=== PATIENT | female | born 1935 | race Caucasian/White ===

== ENCOUNTER 2019-03-10 07:01 | Emergency (ER) | payer OTHER ==
[~2019-03-10] VITALS: Ht 162.6 cm; Wt 68.0 kg
[2019-03-10] MEDS ORDERED: CRANBERRY400 MG PO (07:14)
[2019-03-10] MEDS ORDERED: ASA81BEC PO (07:14)
[2019-03-10] MEDS ORDERED: FIBER-LAX625 MG PO (07:15)
[2019-03-10] MEDS ORDERED: PROTONIX40 M2 PO (07:15)
[2019-03-10] MEDS ORDERED: PLAVIX 75 MG TA75 MG PO (07:15)
[2019-03-10] MEDS ORDERED: ROSUVASTATIN CA10 MG PO (07:15)
[2019-03-10] MEDS ORDERED: [UNRECOGNIZED DRUG - OTHER] PO (07:15)
[2019-03-10] MEDS ORDERED: MESTINON60 MG PO (07:16)
[2019-03-10] MEDS ORDERED: MIDODRINE HCL 55 M1 PO (07:16)
[2019-03-10] MEDS ORDERED: MECLIZINE HCL25 M1 PO (07:17)
[2019-03-10] MEDS ORDERED: NITROSTAT0.4 M1 SUBLING (07:18)
[2019-03-10 08:08] LABS: URINE BILIRUBIN NEGATIVE (Negative); URINE BLOOD NEGATIVE (Negative); URINE CLARITY CLEAR; URINE COLOR YELLOW; URINE GLUCOSE-RANDOM NEGATIVE (Negative); URINE KETONES NEGATIVE (Negative); URINE LEUKOCYTES-REFLEX NEGATIVE (Negative); URINE NITRITE-REFLEX POSITIVE (Negative); URINE PROTEIN TRACE (Negative)
[2019-03-10 08:13] LABS: ABSOLUTE LYMPHOCYTES 0.9 thou/uL (0.8-5.3); ABSOLUTE NEUTROPHILS 4.3 thou/uL (1.6-8.1); BASOPHILS 0.2 %; HEMATOCRIT 39.5 % (37.0-47.0); HEMOGLOBIN 13.1 gm/dL (12.0-15.0); LYMPHOCYTES 13.9 %; MCH 26.6 pg (26.0-34.0); MCHC 33.2 g/dL (28.0-37.0); MONOCYTES 16.5 %; MPV 9.4 fl. (7.2-11.1); NUCLEATED RBCS 0 /100WBC; PLATELET COUNT* 134 thou/uL (150-400); POLYS 69.4 %; RBC 4.93 mil/uL (4.20-5.00); RDW-CV 19.5 % (10.5-14.5); WBC 6.2 thou/uL (4.0-11.0)
[2019-03-10 08:14] LABS: BACTERIA-REFLEX >30 Many /HPF (None Seen); CASTS None Seen /LPF (None Seen); CRYSTALS None Seen /LPF (None Seen); SQUAMOUS 0-3 Few /LPF (0-3); URINE RBC 0-2 Rare /HPF (0-2); URINE WBC-REFLEX 6-15 Few /HPF (0-5)
[2019-03-10 08:27] LABS: ALBUMIN 3.2 g/dL (3.4-5.0); CALCIUM 8.8 mg/dL (8.5-10.1); CREATININE 1.3 mg/dL (0.6-1.3); TOTAL BILIRUBIN 1.2 mg/dL (<0.1-1.0); TOTAL PROTEIN 6.2 g/dL (6.4-8.2)
[2019-03-10 08:31] LABS: POTASSIUM 2.2 mmol/L (3.5-5.1)
--- NOTE | 2019-03-10 09:17 | NUR ---
0905: NURSE IN ROOM, TALKING TO PT AND PT DAUGHTER WHO IS PT DPOA. DAUGHTER EXPRESSED DESIRE TO POSSIBLY TRANSFER PT TO [facility] WHERE PT RECEIVES CARE PRIMARILY. PT DAUGHTER ON PHONE WITH SISTER DISCUSSING TRANSFER VERSUS STAYING AT [facility]. 0913: PT DAUGHTER COMES TO NURSE'S STATION AND STATES SHE WOULD LIKE PT TRANSFERRED TO [facility]. DR. GREENE AWARE. DR. GREENE TALKING TO PT DAUGHTER ABOUT TRANSFER PROCESS AND POSSIBILITY OF [facility] NOT HAVING BEDS, AND IF FAMILY WOULD BE OKAY STAYING HERE IF [facility] DOES NOT HAVE BEDS. PT DAUGHTER ON PHONE WITH SISTER AT THIS TIME. 0917: PT DAUGHTER OUT BY NURSE'S STATION AND STATES IF [facility] DOES NOT HAVE BED, THEN FAMILY IS OKAY WITH BEING TRANSFERRED TO [facility]. DR. GREENE MADE AWARE. ON PHONE WITH [facility] TRANSFER LINE AT THIS TIME.
--- NOTE | 2019-03-10 09:54 | NUR ---
NURSE CALLED [facility] TRANSFER LINE AT THIS TIME. [facility] STATED THEY DID NOT HAVE A BED FOR PT, WOULD CALL BACK WHEN BED AVAILABLE. PT AND PT DAUGHTER MADE AWARE.
--- NOTE | 2019-03-10 10:09 | NUR ---
[facility] CALLED THIS NURSE. THIS NURSE GAVE REPORT TO KELLIE SCHWARTZ WHO IS TO ASSUME PT CARE AT [facility]. PT TO GO TO ROOM 4015 UPON ARRIVAL TO [facility]. PT AND PT DAUGHTER MADE AWARE.
--- NOTE | 2019-03-10 10:33 | EKG ---
[place] [address] ELECTROCARDIOGRAM REPORT Name: URI LUGO Room: [place] [address] ADM IN .R.#: [id number] Admission: 03/10/19 Attend Phys: Eric Malin Discharge: Date of : 33 Report #: [id number] THIS REPORT FOR: //name// 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
--- NOTE | 2019-03-10 11:18 | NUR ---
PT ON BEDPAN. THIS NURSE IN ROOM, TOOK PT OFF BEDPAN. BED SOILED. LINENS CHANGED AND NEW BRIEF APPLIED. AMBULANCE HERE. REPORT GIVEN TO [facility] MACHINE OPERATOR. PT TRANSFERRED FROM ED BED TO AMBULANCE STRETCHER. PT EXITED ED ON AMBULANCE COT. BELONGINGS GIVEN TO PT DAUGHTER. [facility] CALLED AT THIS TIME AND MADE AWARE OF PT DEPARTURE FROM THIS FACILITY.
[2019-03-10 11:21] VITALS: BP 138/69
== END 2019-03-10 11:22 | disposition short-term general hospital (02) ==
LOC: M.ERS 07:01 → M.TBA-ER 08:48
PROVIDERS: Emergency Medicine Emergency Medical Services
DX: A41.9 Sepsis, unspecified organism (principal); N39.0 Urinary tract infection, site not specified; E87.6 Hypokalemia; R79.89 Other specified abnormal findings of blood chemistry; E78.5 Hyperlipidemia, unspecified; Z86.2 Personal history of diseases of the blood and blood-forming organs and certain disorders involving the immune mechanism; Z88.2 Allergy status to sulfonamides